=== PATIENT | female | born 1995 | race Caucasian/White ===

== ENCOUNTER → 2016-08-10 | Outpatient (REF) ==
[~2016-08-10] MED LIST: ORTHO TRI-CYCLE1 TAB PO; PREDNISONE10 MG PO; ZITHROMAX Z PA250 MG PO
== END ==
LOC: WSOH 10:39
DX: Z01.00 Encounter for examination of eyes and vision without abnormal findings (principal); Z01.10 Encounter for examination of ears and hearing without abnormal findings

== ENCOUNTER 2017-10-21 00:41 | Emergency (ER) | payer SELFPAY ==
[~2017-10-21] VITALS: Ht 154.9 cm; Wt 75.0 kg
[2017-10-21 02:23] VITALS: BP 128/77; PULSE 90; TEMP 98.2
== END 2017-10-21 02:26 | disposition home or self-care (01) ==
LOC: COL.ER 00:41
DX: S61.210A Laceration without foreign body of right index finger without damage to nail, initial encounter (principal); W23.0XXA Caught, crushed, jammed, or pinched between moving objects, initial encounter

== ENCOUNTER 2017-10-31 08:05 | Emergency (ER) | payer OTHER ==
[2017-10-31 08:13] VITALS: BP 135/83; PULSE 67; TEMP 96.3
== END 2017-10-31 08:29 | disposition home or self-care (01) ==
LOC: COL.ER 08:05
DX: S61.210D Laceration without foreign body of right index finger without damage to nail, subsequent encounter (principal); X58.XXXD Exposure to other specified factors, subsequent encounter

== ENCOUNTER 2018-02-09 19:23 | Emergency (ER) | payer BC, OTHER ==
[~2018-02-09] VITALS: Ht 154.9 cm; Wt 70.9 kg
[2018-02-09 19:35] VITALS: BP 134/71; TEMP 99
[2018-02-09] MEDS ORDERED: LAMICTAL 25MG T25 MG PO (19:38)
[2018-02-09] MEDS ORDERED: NEXPLANON68 MG ID (19:38)
[2018-02-09] MEDS ORDERED: NORCO 325 MG-51 TAB PO (20:32)
[2018-02-09] MEDS ORDERED: ZOFRAN ODT4 MG PO (20:32)
[2018-02-09 20:45] VITALS: PULSE 80
== END 2018-02-09 20:45 | disposition home or self-care (01) ==
LOC: COL.ER 19:23
DX: S76.911A Strain of unspecified muscles, fascia and tendons at thigh level, right thigh, initial encounter (principal); W19.XXXA Unspecified fall, initial encounter; Y92.009 Unspecified place in unspecified non-institutional (private) residence as the place of occurrence of the external cause; Y93.K1 Activity, walking an animal

== ENCOUNTER 2019-04-25 20:08 | Emergency (ER) | payer BC ==
[~2019-04-25] VITALS: Ht 154.9 cm; Wt 70.5 kg
[~2019-04-25 20:08] MED LIST changes: +LAMICTAL 25MG T25 MG PO; +NEXPLANON68 MG ID; +NORCO 325 MG-51 TAB PO; +ZOFRAN ODT4 MG PO
[2019-04-25 20:26] VITALS: TEMP 97.7
[2019-04-25 20:58] LABS: BASO # 0.1 (0.0-0.2); BASO % 0.8 % (0.0-2.0); EOS # 0.4 (0.0-0.7); EOS % 4.5 % (0-4.0); GRAN % 44.7 % (42.2-75.2); HEMATOCRIT 43.7 % (37.0-47.0); HEMOGLOBIN 14.2 g/dl (12.5-16.0); LYMPH # 3.9 (1.2-3.4); LYMPH % 44.3 % (20.0-51.0); MEAN CELL VOLUME 88 fl (80.0-100.0); MEAN CORPUSCULAR HEMOGLOBIN 29 pg (27.0-31.0); MEAN CORPUSCULAR HGB CONC 33 g/dl (33.0-37.0); MONO # 0.5 (0.1-0.6); MONO % 5.5 % (1.7-9.3); PLATELET COUNT 344 K/mm3 (130-400); RED BLOOD COUNT 4.96 M/mm3 (4.10-5.30); REDCELL DISTRIBUTION WIDTH-CV 12.3 % (11.5-14.5)
[2019-04-25 21:10] LABS: ALANINE AMINOTRANSFERASE 10 U/L (9-52); ALBUMIN 4.9 gm/dL (3.5-5.0); ALKALINE PHOSPHATASE 50 U/L (50-136); ANION GAP 12 mmol/L (7-16); AST,SGOT 22 U/L (15-37); BILIRUBIN,TOTAL 0.8 mg/dL (0.0-1.0); BLOOD UREA NITROGEN 15 mg/dL (7-17); CALCIUM 9.7 mg/dL (8.4-10.2); CARBON DIOXIDE 25 mmol/L (22-30); CHLORIDE 105 mmol/L (98-107); CREATININE, serum 0.75 (0.52-1.25); GLUCOSE 79 mg/dL (74-106); LIPASE 95 U/L (23-300); POTASSIUM 3.3 mmol/L (3.4-5.0); SODIUM 141 mmol/L (137-145)
[2019-04-25 21:18] LABS: C-REACTIVE PROTEIN < 0.5 mg/dL (0.0-0.9)
[2019-04-25 21:20] LABS: TROPONIN-I < 0.012 ng/mL (0.000-0.035)
[2019-04-25 21:52] VITALS: BP 114/78; PULSE 74
== END 2019-04-25 22:10 | disposition home or self-care (01) ==
LOC: COL.ER 20:08
PROVIDERS: Emergency Medicine
DX: R07.89 Other chest pain (principal)

== ENCOUNTER 2020-11-30 04:37 | Emergency (ER) | payer OTHER ==
[~2020-11-30] VITALS: Ht 154.9 cm; Wt 72.7 kg
[2020-11-30 05:11] LABS: BASO % 0.3 % (0.0-2.0); EOS # 0.4 (0.0-0.7); EOS % 4.7 % (0-4.0); GRAN # 5.8 (1.4-6.5); GRAN % 78.5 % (42.2-75.2); HEMATOCRIT 44.7 % (37.0-47.0); LYMPH # 0.9 (1.2-3.4); LYMPH % 11.5 % (20.0-51.0); MEAN CELL VOLUME 88 fl (80.0-100.0); MEAN CORPUSCULAR HEMOGLOBIN 30 pg (27.0-31.0); MEAN CORPUSCULAR HGB CONC 34 g/dl (33.0-37.0); MEAN PLATELET VOLUME 10.2 fl (7.4-10.4); MONO # 0.4 (0.1-0.6); MONO % 4.7 % (1.7-9.3); PLATELET COUNT 260 K/mm3 (130-400); RED BLOOD COUNT 5.09 M/mm3 (4.10-5.30); REDCELL DISTRIBUTION WIDTH-CV 12.3 % (11.5-14.5)
[2020-11-30 05:26] LABS: ALANINE AMINOTRANSFERASE 17 U/L (4-34); ALBUMIN 4.4 gm/dL (3.5-5.0); ALKALINE PHOSPHATASE 49 U/L (50-136); ANION GAP 9 mmol/L (7-16); AST,SGOT 30 U/L (15-37); BILIRUBIN,TOTAL 0.6 mg/dL (0.0-1.0); BLOOD UREA NITROGEN 21 mg/dL (7-17); CALCIUM 9.2 mg/dL (8.4-10.2); CARBON DIOXIDE 23 mmol/L (22-30); CHLORIDE 108 mmol/L (98-107); CREATININE, serum 0.91 (0.52-1.25); GLUCOSE 112 mg/dL (74-106); POTASSIUM 3.7 mmol/L (3.4-5.0); SODIUM 140 mmol/L (137-145); TOTAL PROTEIN 7.4 gm/dL (6.4-8.2)
[2020-11-30 05:31] LABS: LIPASE 81 U/L (23-300)
[2020-11-30 05:40] LABS: TROPONIN-I < 0.012 ng/mL (0.000-0.035)
[2020-11-30 07:11] LABS: MUCOUS Present /lpf; PH 6 (5-8); SQUAMOUS EPITHELIAL 0-2 /hpf; URINE APPEARANCE Clear; URINE BACTERIA None Seen /hpf; URINE BILIRUBIN Negative (NEGATIVE); URINE BLOOD Negative (NEGATIVE); URINE COLOR Yellow; URINE GLUCOSE Negative (NEGATIVE); URINE KETONE Negative (NEGATIVE); URINE LEUKOCYTE ESTERASE Negative (NEGATIVE); URINE NITRATE Negative (NEGATIVE); URINE PROTEIN(semi-quant) Negative (NEGATIVE); URINE RBC 0-2 /hpf; URINE UROBILINOGEN Negative (NEGATIVE); URINE WBC 0-2 /hpf
[2020-11-30] MEDS ORDERED: ZOFRAN ODT4 MG PO (07:20)
[2020-11-30] MEDS ORDERED: PEPCID 20MG TAB20 MG PO (07:20)
[2020-11-30 07:29] LABS: COLLECTION METHOD CLEAN CATCH
[2020-11-30 10:41] VITALS: BP 104/69; PULSE 83
== END 2020-11-30 10:41 | disposition home or self-care (01) ==
LOC: COL.ER 04:37
PROVIDERS: Emergency Medicine
DX: R11.2 Nausea with vomiting, unspecified (principal); R10.11 Right upper quadrant pain; R10.33 Periumbilical pain; Z32.02 Encounter for pregnancy test, result negative
CPT/HCPCS: J2270; J2405; J2765; J7030; Q9967

== ENCOUNTER 2021-09-27 02:22 | Emergency (ER) | payer OTHER ==
[~2021-09-27] VITALS: Ht 154.9 cm; Wt 77.3 kg
[~2021-09-27 02:22] MED LIST changes: +PEPCID 20MG TAB20 MG PO
[2021-09-27 03:50] VITALS: BP 121/95; PULSE 75; TEMP 98.1
== END 2021-09-27 03:55 | disposition home or self-care (01) ==
LOC: COL.ER 02:22
DX: S06.0X0A Concussion without loss of consciousness, initial encounter (principal); W22.01XA Walked into wall, initial encounter; Y92.091 Bathroom in other non-institutional residence as the place of occurrence of the external cause